=== PATIENT | female | born 1945 | race Caucasian/White ===

== ENCOUNTER 2016-11-18 21:40 | Day surgery (SDCO) | payer OTHER ==
[2016-11-18 23:19] LABS: BASOPHIL 0.2 % (0-2); EOSINOPHIL 0.5 % (0-7); HGB 15.2 g/dl (12.5-16.0); LYMPHOCYTE 24.5 % (15-48); MCH 31.4 pg (25.0-31.0); MCV 82.6 fL (78.0-100.0); MONOCYTE 14.5 % (0-12); NEUTROPHIL 60.3 % (41-80); PLT 328 K/uL (150-400); RBC 4.84 M/uL (4.20-5.40); RDW 12.1 % (11.5-14.0); WBC 6.4 K/uL (4.0-10.5)
[2016-11-18 23:35] LABS: ALBUMIN 4.2 g/dL (3.4-4.8); BILIRUBIN - TOTAL 0.6 mg/dL (0.1-1.0); CREATININE 0.6 mg/dL (0.5-1.0); GLOBULIN (CALCULATION) 2.6 g/dL (2.2-4.2); POTASSIUM 3.5 mmol/L (3.5-5.1); TOTAL PROTEIN 6.8 g/dL (6.4-8.3)
[2016-11-19 00:15] LABS: BILIRUBIN NEGATIVE (NEGATIVE); BLOOD NEGATIVE Ery/uL (NEGATIVE); CLARITY CLEAR (CLEAR); COLOR YELLOW (YELLOW); GLUCOSE (U) NORMAL (NORMAL); KETONE (U) NEGATIVE (NEGATIVE); LEUKOCYTES NEGATIVE Leu/uL (NEGATIVE); NITRITE NEGATIVE (NEGATIVE); PROTEIN NEGATIVE (NEGATIVE); UROBILINOGEN 0.2 mg/dL (0.2-1.0)
[2016-11-19 06:02] LABS: BASOPHIL 0.2 % (0-2); HCT 37.9 % (37.0-47.0); HGB 14.3 g/dl (12.5-16.0); LYMPHOCYTE 43.4 % (15-48); MCH 31.3 pg (25.0-31.0); MCHC 37.7 g/dL (32.0-36.0); MCV 82.9 fL (78.0-100.0); MONOCYTE 13.6 % (0-12); MPV 9.1 fL (6.0-9.5); NEUTROPHIL 41.8 % (41-80); PLT 332 K/uL (150-400); RBC 4.57 M/uL (4.20-5.40); RDW 12.1 % (11.5-14.0); WBC 5.1 K/uL (4.0-10.5)
[2016-11-19 06:21] LABS: CREATININE 0.5 mg/dL (0.5-1.0); POTASSIUM 3.2 mmol/L (3.5-5.1)
[2016-11-19 12:06] LABS: CREATININE 0.7 mg/dL (0.5-1.0); POTASSIUM 3.6 mmol/L (3.5-5.1)
[2016-11-19 17:57] LABS: CREATININE 0.7 mg/dL (0.5-1.0); POTASSIUM 3.7 mmol/L (3.5-5.1)
[2016-11-19 23:51] LABS: CREATININE 0.6 mg/dL (0.5-1.0); POTASSIUM 3.6 mmol/L (3.5-5.1)
[2016-11-20 05:02] LABS: HCT 34.9 % (37.0-47.0); HGB 12.7 g/dl (12.5-16.0); MCH 31.1 pg (25.0-31.0); MCHC 36.4 g/dL (32.0-36.0); MCV 85.3 fL (78.0-100.0); RBC 4.09 M/uL (4.20-5.40); RDW 12.4 % (11.5-14.0); WBC 4.4 K/uL (4.0-10.5)
[2016-11-20 05:15] LABS: CREATININE 0.5 mg/dL (0.5-1.0); POTASSIUM 3.4 mmol/L (3.5-5.1)
[2016-11-21 04:23] LABS: HCT 34.8 % (37.0-47.0); HGB 12.1 g/dl (12.5-16.0); MCH 30.6 pg (25.0-31.0); MCHC 34.8 g/dL (32.0-36.0); MCV 87.9 fL (78.0-100.0); MPV 9.2 fL (6.0-9.5); RBC 3.96 M/uL (4.20-5.40); RDW 12.6 % (11.5-14.0); WBC 3.8 K/uL (4.0-10.5)
[2016-11-21 04:39] LABS: CREATININE 0.6 mg/dL (0.5-1.0); POTASSIUM 4.1 mmol/L (3.5-5.1)
== END 2016-11-21 13:45 | disposition home or self-care (01) ==
LOC: FER 21:40 → FTCU 11-19 00:38 → FMS 11-19 00:38
PROVIDERS: Nurse Practitioner; ADMIT Internal Medicine
DX: E87.1 Hypo-osmolality and hyponatremia (principal); I10 Essential (primary) hypertension; K21.9 Gastro-esophageal reflux disease without esophagitis; Z90.49 Acquired absence of other specified parts of digestive tract; Z88.5 Allergy status to narcotic agent; Z91.030 Bee allergy status; Z79.899 Other long term (current) drug therapy
CPT/HCPCS: 36415; 71020; 80048; 80053; 81003; 83930; 83935; 84300; 85025; 93005; G0378; J2405